=== PATIENT | male | born 1960 | race African-American/Black ===

== ENCOUNTER 2018-01-24 15:08 | Emergency (ER) | payer OTHER ==
[~2018-01-24] VITALS: Ht 180.3 cm; Wt 99.8 kg
--- NOTE | 2018-01-24 15:20 | NUR ---
is at bedside doing the MSE.
[2018-01-24] MEDS ORDERED: IV NORMAL SALINE 1000 ML BAG IV ONE (15:30)
[2018-01-24] MEDS ORDERED: ONDANSETRON 4 MG/2 ML VIAL IV ONE (15:30)
[2018-01-24] MEDS ORDERED: FAMOTIDINE. 20 MG/2 ML VIAL IV ONE ×2 (15:30→15:37)
[2018-01-24] MEDS ORDERED: ONDANSETRON 4 MG/2 ML VIAL ONE (15:36)
[2018-01-24 15:45] LABS: BASOPHILS % (AUTO) 0.5 % (0.0-2.0); EOSINOPHILS % (AUTO) 0.6 % (0.0-7.0); HEMATOCRIT 46.7 % (36.7-47.1); HEMOGLOBIN 15.5 g/dL (12.5-16.3); LYMPHOCYTES # (AUTO) 0.5 K/uL (20.0-40.0); LYMPHOCYTES % (AUTO) 9.3 % (20.5-51.5); MEAN CORPUSCULAR HGB CONC 33 g/dL (32.5-36.3); MEAN CORPUSCULAR VOLUME 87.1 fL (73.0-96.2); MONOCYTES # (AUTO) 0.3 K/uL (2.0-10.0); MONOCYTES % (AUTO) 4.4 % (0.0-11.0); NEUTROPHILS % (AUTO) 85.2 % (38.5-71.5); PLATELET COUNT (AUTO) 179 K/uL (152-348); RED BLOOD CELL COUNT(AUTO) 5.36 MIL/uL (4.06-5.63); WHITE BLOOD COUNT (AUTO) 5.8 K/uL (3.6-10.2)
[2018-01-24 15:50] LABS: POTASSIUM 4.1 mmol/L (3.5-5.1)
[2018-01-24 15:55] LABS: BILIRUBIN,DIRECT 0.1 mg/dL (0.0-0.2); BILIRUBIN,TOTAL 0.6 mg/dL (0.2-1.0); TOTAL PROTEIN, SERUM 7.9 g/dL (6.4-8.2)
--- NOTE | 2018-01-24 16:27 | NUR ---
Patient is resting comfortably on gurney with eyes closed, decrease dizziness expressed, denies nausea@this time. Clear liquid food tray was ordered. Patient's spouse is at bedside.
--- NOTE | 2018-01-24 17:10 | NUR ---
Patient tolerated po challenge. Patient denies nausea. No vomiting or diarrhea episodes seen while in ER. IV removed. Catheter intact and site benign. Pressure and 4x4 gauze applied to site. No bleeding noted. Patient discharged to home in stable conditon with steady gait. Written and verbal after care instructions given to patient and spouse. Patient and spouse verbalized understanding of instructions. Patient voided in the bathroom.
== END 2018-01-24 17:13 | disposition home or self-care (01) ==
LOC: ER 15:10
DX: R11.2 Nausea with vomiting, unspecified (principal); R19.7 Diarrhea, unspecified
CPT/HCPCS: 36415; 80048; 80076; 83690; 84484; 85025; 93005; 96374; 96375; 99285; A4663; J2405; J3490; J7030; 70030-TC